=== PATIENT | male | born 1960 | race Caucasian/White ===

== ENCOUNTER 2018-10-27 17:40 | Inpatient (IN) | payer BC ==
[~2018-10-27] VITALS: Ht 185.4 cm; Wt 95.3 kg
[2018-10-27 17:51] VITALS: BP 133/90
[2018-10-27 18:13] LABS: ABSOLUTE BASOPHILS 0.1 thou/uL (0.0-0.2); ABSOLUTE EOSINOPHILS 0.1 thou/uL (0.0-0.7); ABSOLUTE LYMPHOCYTES 1.9 thou/uL (0.8-5.3); ABSOLUTE MONOCYTES 1.4 thou/uL (0.0-1.2); ABSOLUTE NEUTROPHILS 12.9 thou/uL (1.6-8.1); BASOPHILS 0.3 %; EOSINOPHILS 0.4 %; HEMATOCRIT 47.3 % (42.0-52.0); HEMOGLOBIN 16.1 gm/dL (14.0-18.0); LYMPHOCYTES 11.8 %; MCH 31.3 pg (26.0-34.0); MCHC 34.1 g/dL (28.0-37.0); MCV 91.7 fL (80.0-100.0); MONOCYTES 8.8 %; MPV 10.1 fl. (7.2-11.1); NUCLEATED RBCS 0 /100WBC; PLATELET COUNT* 281 thou/uL (150-400); POLYS 78.7 %; RBC 5.16 mil/uL (4.50-6.00); RDW-CV 13.4 % (10.5-14.5); WBC 16.4 thou/uL (4.0-11.0)
[2018-10-27 18:29] LABS: ALBUMIN 4.2 g/dL (3.4-5.0); ALKALINE PHOSPHATASE 75 U/L (46-116); ANION GAP 14 mmol/L (7-16); BUN 17 mg/dL (7-18); CHLORIDE 99 mmol/L (98-107); CO2 26 mmol/L (21-32); GLUCOSE 141 mg/dL (70-99); LIPASE 57 U/L (73-393); SGOT 25 U/L (15-37); SGPT 36 U/L (30-65); SODIUM 139 mmol/L (136-145); TOTAL PROTEIN 8.1 g/dL (6.4-8.2); TROPONIN-I LEVEL <0.06 ng/mL (<0.06)
[2018-10-27 20:34] LABS: URINE BILIRUBIN NEGATIVE (Negative); URINE BLOOD NEGATIVE (Negative); URINE CLARITY CLEAR; URINE COLOR YELLOW; URINE GLUCOSE-RANDOM NEGATIVE (Negative); URINE KETONES TRACE (Negative); URINE LEUKOCYTES NEGATIVE (Negative); URINE NITRITE NEGATIVE (Negative); URINE PROTEIN NEGATIVE (Negative); URINE SPECIFIC GRAVITY <= 1.005 (1.005-1.030); URINE UROBILINOGEN 0.2 E.U./dl (0.2-1.0)
[2018-10-27 21:26] VITALS: BP 138/88
--- NOTE | 2018-10-28 08:41 | NUR ---
PATIENT WAS ADMITTED TO ROOM 317 AT APPROXIMATELY 2115 FROM THE ER. VSS ON RA. NO C/O PAIN SINCE BEING ADMITTED TO THE FLOOR. NO C/O NAUSEA OR VOMITING. PATIENT ORIENTED TO ROOM AND POLICIES AND FALL EDUCATION GIVEN AND FALL AGREEMENT SIGNED. ASSESSMENT CHARTED. IV IN RIGHT AC-NS @ 100ML/HR. SURGERY CONSULTED THIS AM AND AWAITING CALL BACK OR FOR SURGERY TO SEE PATIENT THIS AM. REPORT GIVEN TO DAY NURSE. PATIENT INSTRUCTED TO USE CALL LIGHT WHEN NEEDING ASSISTANCE. HOURLY ROUNDS MADE. WILL CONTINUE WITH PLAN OF CARE AND NURSING TO MONITOR.
[2018-10-28 09:22] LABS: ABSOLUTE EOSINOPHILS 0.2 thou/uL (0.0-0.7); ABSOLUTE LYMPHOCYTES 1.9 thou/uL (0.8-5.3); ABSOLUTE MONOCYTES 0.9 thou/uL (0.0-1.2); ABSOLUTE NEUTROPHILS 5.5 thou/uL (1.6-8.1); BASOPHILS 0.5 %; HEMATOCRIT 42.1 % (42.0-52.0); HEMOGLOBIN 14.2 gm/dL (14.0-18.0); LYMPHOCYTES 21.9 %; MCH 31.4 pg (26.0-34.0); MCHC 33.7 g/dL (28.0-37.0); MONOCYTES 10.5 %; MPV 9.7 fl. (7.2-11.1); NUCLEATED RBCS 0 /100WBC; PLATELET COUNT* 233 thou/uL (150-400); POLYS 65.1 %; RBC 4.52 mil/uL (4.50-6.00); RDW-CV 13.5 % (10.5-14.5); WBC 8.5 thou/uL (4.0-11.0)
[2018-10-28 09:38] LABS: CALCIUM 8.4 mg/dL (8.5-10.1); CREATININE 0.9 mg/dL (0.6-1.3); MAGNESIUM 1.9 mg/dL (1.8-2.4); POTASSIUM 3.9 mmol/L (3.5-5.1)
[2018-10-28] MEDS ORDERED: ZOFRAN ODT4 MG PO (09:45)
[2018-10-28 14:07] VITALS: BP 138/88
[2018-10-28 15:23] VITALS: BP 138/88
--- NOTE | 2018-10-28 15:25 | NUR ---
ASSESSMENT COMPLETE. PATIENT ALERT AND ORIENTED X4. PT DENIES PAIN AND N/V. SURGERY CONSULTED AND AGREES WITH DC IF TOLERATING MEALS. PATIENT TOLERATED REGULAR LUNCH WITHOUT NAUSEA. PT DC HOME WITH ZOFRAN PRESCRIPTION. DC INSTRUCTIONS GIVEN AND PATIENT VERBALIZES UNDERSTANDING. ALL BELONGINGS SENT WITH PATIENT. SEE ASSESSMENT AND VITALS FOR OTHER DETAILS.
--- NOTE | 2018-10-29 12:27 | EKG ---
[place] [address] ELECTROCARDIOGRAM REPORT Name: DWIGHT CASTELLANOS Room: [address] IN M..#: [id number] Admission: 10/27/18 Attend Phys: Sybil Sanchez Discharge: 10/28/18 Date of : 62 Report #: [id number] THIS REPORT FOR: //name// [facility] ED Test Date: 2018-10-27 Test Time: 18:15:21 Pat Name: DWIGHT CASTELLANOS Department: Room: [facility] Gender: M Driver/Sales Workers: : 1960 Requested By: Deepali Jerez Order Number: [id number] MD: Tony Jimenez Measurements Intervals Carman Rate: 97 P: 58 WI: 123 QRS: -33 QRSD: 148 T: 27 QT: 367 QTc: 466 Interpretive Statements Sinus rhythm Right bundle branch block No previous ECG available for comparison Electronically Signed On 10-29-2018 12:27:02 CDT by Tony Jimenez [email or web address] <ELECTRONICALLY SIGNED> By: Tony Jimenez MD, [facility] 10/29/18 1227 1815 1815 Tony Jimenez MD, [facility] /EPI
== END 2018-10-28 14:40 | disposition home or self-care (01) | DRG 392 ==
LOC: M.ERS 17:40 → M.TBA-ER 20:06 → M.3W 20:06
PROVIDERS: Physician Assistant; Surgery; ADMIT Internal Medicine
DX: A08.4 Viral intestinal infection, unspecified (principal); K56.600 Partial intestinal obstruction, unspecified as to cause; D72.829 Elevated white blood cell count, unspecified; R73.9 Hyperglycemia, unspecified; Z90.49 Acquired absence of other specified parts of digestive tract; Z87.891 Personal history of nicotine dependence